=== PATIENT | female | born 1995 | race Caucasian/White ===

== ENCOUNTER 2024-08-28 12:09 | Emergency (ER) | payer BC, SELFPAY ==
[2024-08-28 12:21] VITALS: BP 100/70; PULSE 87; RESP 20; TEMP 36.7; O2SAT 100
[2024-08-28 12:26] VITALS: BP 100/70; PULSE 87; RESP 20; TEMP 36.7; O2SAT 100
--- NOTE | 2024-08-28 13:12 | ED.DENTAL ---
HPI - Dental/Oral General Chief complaint: Dental/Oral Stated complaint: swelling left side of face jawline Time Seen by Provider: 08/28/24 13:12 Source: patient Mode of arrival: ambulatory History of Present Illness HPI Narrative: 29-year-old female presented for complaint of left jaw pain x2 days, swelling x1 day. reports history of periodontal disease. endorses pain with chewing or drinking fluids. Has applied or jaw without much relief. Denies difficulty maintaining secretions. MD Complaint: tooth pain Related Data Allergies Allergy/AdvReac Type Severity Reaction Status Date / Time No Known Allergies Allergy Verified 08/28/24 12:25 Review of Systems Review of Systems: CONSTITUTIONAL: Denies body aches, fever, chills ENT: Denies rhinorrhea, congestion, sore throat, or otalgia. Reports Left lower dental pain CARDIOVASCULAR: Denies chest pain, palpitations RESPIRATORY: Denies cough or dyspnea. SKIN: Denies rash, itching, or wounds. MUSCULOSKELETAL: Denies myalgia. NEUROLOGIC: Denies headache, numbness, tingling, or weakness. PMFSH Comments At time of signature, I have reviewed and agree with nursing past medical, surgical, social and family history unless otherwise noted. Please see nursing chart for further information. There is no relevant family history pertinent to the presenting complaint Exam Narrative: GENERAL: Appears in pain; no acute distress. HEAD: Normocephalic, atraumatic. EYES: EOMI. No redness or drainage. Conjunctivae normal. ENT: Dental pain location of #18, tooth is absent. Broken tooth at #19. Gum is erythematous and tender. mild jaw swelling noted to face. Poor dentition throughout. Mucous membranes pink and moist. TMs normal bilaterally. Throat normal. no dysphagia, odynophagia, dysphonia, or dyspnea. No uvular deviation or soft palate edema. NECK: Normal AROM. mild left anterior cervical lymphadenopathy. no induration below mandible, no neck pain. CHEST: No respiratory distress. Clear to auscultation. HEART: Regular rate and rhythm. No murmur appreciated. SKIN: Warm, dry, Normal skin turgor. NEURO: Alert and oriented x3. Course Course Emergency Course: Patient is aware of diagnosis, understands and agrees to treatment plan. Anticipatory guidance given. Patient agrees to follow-up as directed and is aware of reasons to seek care at the emergency department. Portions of this record may have been created with voice recognition software Level of Care: Express Care Visit Vital Signs Vital signs: Vital Signs Temperature 98.1 F 08/28/24 12:21 Pulse Rate 87 08/28/24 12:21 Respiratory Rate 20 08/28/24 12:21 Blood Pressure 100/70 08/28/24 12:21 Pulse Oximetry 100 08/28/24 12:21 Oxygen Delivery Room Air 08/28/24 12:21 Temperature 98.1 F 08/28/24 12:26 Pulse Rate 87 08/28/24 12:26 Respiratory Rate 20 08/28/24 12:26 Blood Pressure 100/70 08/28/24 12:26 Pulse Oximetry 100 08/28/24 12:26 Oxygen Delivery Room Air 08/28/24 12:26 MDM - Dental/Oral MDM Narrative Medical decision making narrative: Patients pain and complaint coupled with physical findings are consistent with dental abscess There are no focal signs of space occupying lesions that are compromising to the airway; Patient is non-toxic appearing. The floor of the mouth is soft with no signs of Brendan's Angina; no induration below mandible, no neck pain. Patient is without trismus or drooling and able to swallow secretions. Patient is felt appropriate for discharge home with dental follow up. Differential Diagnosis Differential diagnosis: Likely gingival abscess, dental caries, toothache, dental abscess, fracture of tooth and aphthous ulcer Discharge Plan Discharge Clinical Impression: Dental abscess Patient Disposition: Home, Self-Care Condition: Stable Instructions: Antibiotic Form, Dental Abscess (ED) Additional Instructions: Take antibiotic as directed May apply heat or ice to the face for comfort Gentle brushing and flossing. Rinse mouth with warm salt water at least 2 times a day. Alternate Tylenol and ibuprofen as needed for pain. Orajel according to package directions Follow-up with the dentist as soon as possible go to the ER for worsening symptoms or concerns (swelling, redness, pain into the neck/throat, trouble breathing or swallowing saliva etc) Prescriptions: New ibuprofen 800 mg tablet 800 mg PO TID PRN (Reason: pain) Qty: 15 0RF amoxicillin-pot clavulanate 875-125 mg tablet 1 tablet PO Q12H 7 Days Qty: 14 0RF Follow-up/Referrals: PHYSICIAN,[facility] [Primary Care Provider] - Stand Alone Forms: Work/School Release IP
== END 2024-08-28 13:21 | disposition home or self-care (01) ==
PROVIDERS: Emergency Provider Nurse Practitioner Family
DX: K04.7 Periapical abscess without sinus (principal)
CPT/HCPCS: 99203; G0463